=== PATIENT | female | born 1980 | race Caucasian/White ===

== ENCOUNTER → 2019-12-11 | Outpatient (CLI) | payer BC | LOC: RAD 07:15 | DX: R10.13 Epigastric pain (principal); R11.0 Nausea ==

== ENCOUNTER → 2021-09-01 | Outpatient (CLI) | payer BC | LOC: RAD 08-19 09:00 | DX: D18.03 Hemangioma of intra-abdominal structures (principal) ==

== ENCOUNTER → 2022-04-24 | Outpatient (CLI) | payer OTHER | LOC: RAD 10:03 | DX: E05.90 Thyrotoxicosis, unspecified without thyrotoxic crisis or storm (principal) ==